=== PATIENT | male | born 1970 | race Caucasian/White ===

== ENCOUNTER 2020-02-15 10:06 | Emergency (ER) | payer OTHER ==
[~2020-02-15] VITALS: Ht 182.9 cm; Wt 110.4 kg
--- NOTE | 2020-02-15 10:30 | NUR ---
PT BIB FAMILY FOR 2-3 MONTH HX OF PALPITATIONS WHILE SEATED BUT NOT WHILE ACTIVE WITH BRIEF BOUTS OF DIZZINESS WHILE STANDING WITH LAST EPISODE WHILE DRIVING. PT DENIES ANY CP, SOB, N/V, DIAPHORESIS. PT ON MONITOR.
[2020-02-15 11:14] LABS: ALBUMIN 4.3 g/dL (3.4-5.0); ANION GAP 7 mmol/L (5-15); CALCIUM 8.6 mg/dL (8.5-10.1); CHLORIDE 104 mmol/L (98-107)
[2020-02-15 11:16] LABS: BASOPHILS # (AUTO) 0.04 x10^3/uL (0-0.1); BASOPHILS % (AUTO) 1 % (0-1); EOSINOPHILS # (AUTO) 0.38 x10^3/uL (0-0.4); EOSINOPHILS % (AUTO) 6 % (1-7); LYMPHOCYTES # (AUTO) 2.27 x10^3/uL (1-3.4); LYMPHOCYTES % (AUTO) 37 % (22-44); MD NO; MEAN CORPUSCULAR HEMOGLOBIN 28.6 pg (27.5-34.5); MEAN CORPUSCULAR HGB CONC 33.1 g/dL (33.2-36.2); MEAN CORPUSCULAR VOLUME 86.6 fL (81-97); MEAN PLATELET VOLUME 8.3 fL (7.4-10.4); MONOCYTES # (AUTO) 0.59 x10^3/uL (0.2-0.8); MONOCYTES % (AUTO) 9 % (2-9); NEUTROPHILS # (AUTO) 2.94 x10^3/uL (1.8-6.8); NEUTROPHILS % (AUTO) 47 % (42-75); PLATELET COUNT 275 x10^3/uL (130-400); RED BLOOD COUNT 5.94 x10^6/uL (4.38-5.82); RED CELL DISTRIBUTION WIDTH 13.6 % (9.4-14.8)
[2020-02-15 11:20] LABS: ALANINE AMINOTRANSFERASE 60 U/L (12-78); ALKALINE PHOSPHATASE 57 U/L (45-117); BILIRUBIN,TOTAL 0.5 mg/dL (0.2-1.0); TOTAL PROTEIN 8.6 g/dL (6.4-8.2); TROPONIN I < 0.015 ng/mL (0.000-0.045)
[2020-02-15 11:32] VITALS: BP 148/102
--- NOTE | 2020-02-15 11:32 | NUR ---
CHART UP FOR MD RECHECK PT AWARE.
== END 2020-02-15 12:32 | disposition home or self-care (01) ==
LOC: ED 10:31
DX: R00.2 Palpitations (principal); R00.0 Tachycardia, unspecified; R42 Dizziness and giddiness; R51 Headache; I45.10 Unspecified right bundle-branch block
CPT/HCPCS: 36415; 80053; 84443; 84484; 85025; 93005; 99284

== ENCOUNTER → 2020-04-26 | Outpatient (CLI) | payer OTHER | END | disposition home or self-care (01) | LOC: CFH 10:02 | PROVIDERS: ATTEND Internal Medicine Cardiovascular Disease | DX: I35.1 Nonrheumatic aortic (valve) insufficiency (principal); I11.9 Hypertensive heart disease without heart failure | CPT/HCPCS: 93306 ==